=== PATIENT | male | born 1940 ===

== ENCOUNTER 2021-07-14 05:32 | Observation (INO) ==
[2021-07-14] MEDS ORDERED: ceFAZolin 2 GM in NS PREMIX 2 GM/100 ML BAG IVPB ONE (05:57)
[2021-07-14] MEDS ORDERED: Famotidine IV 10 MG/ML 2 ml VIAL (20 mg) ONE (05:57)
[2021-07-14] MEDS ORDERED: Lactated Ringers 1000 ml BAG 1,000 ML IV SCH ×2 (06:00→11:00)
[2021-07-14] MEDS ORDERED: Famotidine IV 10 MG/ML 2 ml VIAL (20 mg) IV ONE (06:00)
[2021-07-14] MEDS ORDERED: Buffered Lidocaine 1% SYRIN 1 ml INTRADERM ONE (06:00)
[2021-07-14] MEDS ORDERED: ROPIVACAINE 5 MG/ML 30 ML BTL (0.5%) ONE ×2 (06:39→07:59)
[2021-07-14] MEDS ORDERED: Midazolam 5 mg/5 ml VIAL 1 mg/ml 5 ml VIAL (5 mg) ONE (06:39)
[2021-07-14] MEDS ORDERED: fentaNYL 100 mcg/2 ml 50 MCG/ML VIAL ONE ×2 (06:39→07:06)
[2021-07-14] MEDS ORDERED: Lidocaine 1% MPF 5 ML VIAL ONE (06:40)
[2021-07-14] MEDS ORDERED: Dexamethasone IV 4 MG/ML VIAL 1 ml VIAL ONE (07:06)
[2021-07-14] MEDS ORDERED: Midazolam 2 mg/2 ml VIAL 1 mg/ml 2 ml VIAL (2 mg) ONE (07:06)
[2021-07-14] MEDS ORDERED: Ondansetron 4 mg VIAL 2 MG/ML 2 ml VIAL ONE (07:06)
[2021-07-14] MEDS ORDERED: Phenylephrine IV 10 MG/ML 1 ml VIAL ONE (07:52)
[2021-07-14] MEDS ORDERED: Acetaminophen IV 1 GM/100ML 100 ML IV ONE (08:11)
[2021-07-14] MEDS ORDERED: Glycopyrrolate IV 0.2 MG/ML 1 ML VIAL ONE (08:25)
[2021-07-14] MEDS ORDERED: EPHEDrine (Pressors) 50 MG/ML VIAL ONE (08:26)
[2021-07-14] MEDS ORDERED: fentaNYL 100 mcg/2 ml 50 MCG/ML VIAL IV PRN (08:56)
[2021-07-14] MEDS ORDERED: HYDROmorphone 1 MG/1 ML SYRINGE IV PRN (08:56)
[2021-07-14] MEDS ORDERED: Ondansetron 4 mg VIAL 2 MG/ML 2 ml VIAL IV PRN ×2 (08:56→10:33)
[2021-07-14] MEDS ORDERED: Naloxone 0.4 mg VIAL 0.4 mg/ml 1 ml VIAL IV PRN (08:56)
[2021-07-14] MEDS ORDERED: Lactulose 30 ml UDC PO PRN (10:33)
[2021-07-14] MEDS ORDERED: Magnesium Hydroxide LIQ 30 ML UDC PO PRN (10:33)
[2021-07-14] MEDS ORDERED: Morphine 2 MG/ML SYRINGE IV PRN (10:33)
[2021-07-14] MEDS ORDERED: Ondansetron ODT 4 mg TAB 4 MG TAB PO PRN (10:33)
[2021-07-14] MEDS ORDERED: ceFAZolin 1 GM ADVAN 1 GM in NS 0.9% 50 ML 50 ML IVPB SCH ×2 (11:00→16:00)
[2021-07-14 13:37] VITALS: BP 124/66
[2021-07-14] MEDS ORDERED: FLUOCINONIDE 0.05% TOPICAL SCH (21:00)
[2021-07-14] MEDS ORDERED: Magnesium Hydroxide LIQ 30 ML UDC PO SCH (21:00)
[2021-07-14] MEDS ORDERED: CMC: Simvastatin 10 mg TAB (NF) PO SCH (21:00)
[2021-07-14] MEDS ORDERED: Docusate LIQ 100 MG/10 ML UDC PO SCH (21:00)
[2021-07-15] MEDS ORDERED: Triamcinolone 0.025% OINT 15 GM TUBE TOPICAL SCH (09:00)
[2021-07-15] MEDS ORDERED: Vitamin THERAPEUTIC TAB PO SCH (09:00)
== END 2021-07-14 16:30 | disposition home or self-care (01) ==
LOC: OR 05:32 → SSU 05:32
PROVIDERS: ADMIT Orthopaedic Surgery Adult Reconstructive Orthopaedic Surgery; ATTEND Orthopaedic Surgery Adult Reconstructive Orthopaedic Surgery